=== PATIENT | male | born 1940 | race Caucasian/White ===

== ENCOUNTER 2018-11-06 19:19 | Observation (INO) ==
--- NOTE | 2018-11-06 19:59 | Emergency Department Note ---
Disposition Clinical Impression: Unable to ambulate, Painless hematuria Fall Qualifiers: Encounter type: initial encounter Qualified Code(s): W19.XXXA - Unspecified fal l, initial encounter Nasal fracture Qualifiers: Encounter type: initial encounter Fracture type: open Qualified Code(s): S02.2XXB - Fracture of nasal bones, initial encounter for open fracture Disposition: Admitted As Inpatient Time of Disposition: 00:45 General Adult HPI - General Chief complaint: ED Fall Stated complaint: Fall Time Seen by Provider: 11/06/18 19:39 Source: patient, EMS Mode of arrival: EMS Nursing Notes Reviewed: Yes Vital Signs Reviewed: Yes - History of Present Illness HPI Narrative: Mr. Kennedy is a 77 yo male with PMH of HLD and GERD, presenting emergency department via EMS after a fall at home. He states that his legs "gave out" from under him and this was the cause of the fall. Denies weakness in legs now. EMS report was that he tripped and fell. No one witnessed the fall, but his was near and got to him immediately. Denies other preceding symptoms, no chest pain, palpitations, or light-headedness. He denies LOC, headache, vision changes, neck pain, back pain, numbness, tingling, current weakness, dyspnea, abdominal pain, or loss of bowel/bladder function. He is not on anticoagulation. He reports he only goes to the doctor about once per year and has not had any recent labs done. He has not discussed his legs giving out with any physician. He also reports a few episodes of painless hematuria in the past, and he was a former smoker. Pain Scale: 6 - Related Data Home Medications Medication Instructions Recorded Confirmed Aspirin [Lo-Dose Aspirin EC] 81 mg PO DAILY 11/06/18 11/06/18 Omeprazole [PriLOSEC] 20 mg PO DAILY 11/06/18 11/06/18 Pravastatin Sodium [Pravachol] 40 mg PO HS 11/06/18 11/06/18 Allergies Allergy/AdvReac Type Severity Reaction Status Date / Time No Known Allergies Allergy Verified 11/06/18 19:37 Review of Systems: Admits to fall and transient leg weakness. Denies chest pain, palpitations, light-headedness, LOC, headache, vision changes, neck pain, back pain, numbness, tingling, current weakness, dyspnea, abdominal pain, or loss of bowel/bladder function. Past Medical History - Past Medical History Medical history: Reports: GERD, hyperlipidemia, hypertension, other Psychiatric history: Reports: no psych history - Social History Smoking Status: Never smoker Smokeless Tobacco Status: No Alcohol use: Reports: none Drug use: Reports: none Physical Exam GEN: No acute distress, A&O3 HEAD: normocephalic, facial bones without crepitus or pain, 2cm angulated laceration on bridge of nose EYES: Pupils symmetric, sclera white, conjunctiva pink EARS: EACs clear, normal TMs bilaterally, no hemotympanum HEART: RRR, normal S1 and S2, no murmurs LUNGS: Clear to auscultation bilaterally, no wheezes, rhonchi, or crackles ABD: Soft, nontender, nondistended, bowel sounds present EXT: No edema noted, pulses 2/4 MSK: No cervical, thoracic, or lumbar tenderness NEURO: No focal deficits, cooperative with exam, PERRL, CN 2-12 grossly intact, no facial drooping, strength 5/5 in UE and LE, sensation to light touch intact in all four extremities, finger to nose testing normal - General Limitations: other General appearance: alert Course Vital Signs Temperature 100.2 F H 11/06/18 19:27 Pulse Rate 101 11/06/18 19:27 Respiratory Rate 24 11/06/18 19:27 Blood Pressure 129/80 11/06/18 19:27 O2 Sat by Pulse Oximetry 97 11/06/18 19:27 Temperature 99.7 F H 11/06/18 23:44 Pulse Rate 101 11/07/18 00:15 Respiratory Rate 24 11/07/18 00:15 Blood Pressure 156/85 11/07/18 00:15 O2 Sat by Pulse Oximetry 97 11/07/18 00:15 Oxygen Delivery Oxygen Delivery Room Air Medical Decision Making - [facility] Narrative Medical decision making narrative: 77-year-old male presenting after a fall, there is question if this is mechanical or due to weakness. He does have a laceration over the nose. CT of the head shows no acute intracranial abnormality. Facial CT shows acute comminuted, nondisplaced nasal bone fractures. He does have a low-grade te mperature of 100.2, but without any signs or symptoms of source of infection, and repeat temp is 99.9 F. He has been mildy tachycardic, but regular in rhythm. His labs show glucose 155 and otherwise unremarkable CMP, normal CBC. He was having some hematuria, but UA shows protein, ketones, and small leuk esterase, and negative nitrites. Abd/pelvis CT ordered and will be followed up on as in-patient. He progressed to having difficulty sitting up in bed on his own and complains of intermittent weakness in his legs. - Lab Data Result diagrams: 11/06/18 19:35 11/06/18 19:35 Lab Results 11/06/18 11/06/18 11/06/18 Range/Units 19:35 19:35 22:19 WBC 10.9 (4.3-11.1) K/mcL RBC 5.10 (4.19-5.50) M/mcL Hgb 13.7 (12.9-16.9) g/dL Hct 44.5 (37.5-50.1) % MCV 87.3 (83.0-100.0) fL MCH 26.9 L (28.0-33.3) pg MCHC 30.8 L (31.6-35.5) g/dL RDW 13.8 (11.5-14.5) % Plt Count 235 (140-400) K/mcL MPV 10.0 (9.4-12.4) fL Immature Gran % 0.5 (0-4) % Seg Neutrophils % 79.2 % Lymphocytes % 10.8 % Monocytes % 7.9 % Eosinophils % 1.1 % Basophils % 0.5 % Neutrophils # 8.6 (1.6-8.9) K/mcL Lymphocytes # 1.2 (0.6-4.6) K/mcL Monocytes # 0.9 (0.0-1.3) K/mcL Eosinophils # 0.1 (0.0-0.6) K/mcL Basophils # 0.1 (0.0-0.2) K/mcL Sodium 140 (136-145) mEq/L Potassium 3.6 (3.5-5.1) mEq/L Chloride 102 (98-107) mEq/L Carbon Dioxide 27 (23-29) mEq/L BUN 19 (8-23) mg/dL Creatinine 1.18 (0.70-1.30) mg/dL Est GFR ( Amer) > 60 (> 60) Est GFR (Non-Af Amer) > 60 (> 60) BUN/Creatinine Ratio 16 (6-26) Glucose 155 H (70-105) mg/dL Calculated Osmolality 295 (280-300) Calcium 9.3 (8.6-10.3) mg/dL Total Bilirubin 0.5 (0.3-1.0) mg/dL AST 45 H (13-39) Units/L ALT 40 (7-52) Units/L Alkaline Phosphatase 163 H (34-104) Units/L Serum Total Protein 6.9 (6.4-8.9) g/dL Albumin 4.0 (3.5-5.7) g/dL Globulin 2.9 (2.4-3.5) g/dL Albumin/Globulin Ratio 1.4 (1.1-2.2) Urine Color Yellow (Yellow) Urine Clarity Clear (Clear) Urine pH 6.0 (5.0-8.0) pH Units Ur Specific [place] 1.028 H (1.010-1.025) Urine Protein 30 H (Neg-Trace) mg/dL Urine Glucose (UA) Normal (Normal) mg/dL Urine Ketones Trace H (Negative) mg/dL Urine Blood Negative (Negative) Urine Nitrite Negative (Negative) Urine Bilirubin Negative (Negative) Urine Urobilinogen Normal (Normal) mg/dL Ur Leukocyte Esterase Small H (Negative) Urine Microscopic RBC 0-3 (0-3) per hpf Urine Microscopic WBC 0-3 (0-3) per hpf Calcium Oxalate Crystal Present Urine Bacteria Few (None-Few) per hpf Hyaline Casts Few (None-Few) per lpf Ur Culture Indicated? YES A (NO) - Radiology Data Radiology results reviewed: Yes I reviewed the patient's radiology results.
--- NOTE | 2018-11-06 20:14 | Emergency Department Note ---
Disposition Clinical Impression: Unable to ambulate, Painless hematuria Fall Qualifiers: Encounter type: initial encounter Qualified Code(s): W19.XXXA - Unspecified fal l, initial encounter Nasal fracture Qualifiers: Encounter type: initial encounter Fracture type: open Qualified Code(s): S02.2XXB - Fracture of nasal bones, initial encounter for open fracture Disposition: Admitted As Inpatient Condition: Fair Forms: ED Satisfaction Letter Time of Disposition: 00:31 General Adult HPI - General Chief complaint: ED Fall Stated complaint: Fall Time Seen by Provider: 11/06/18 19:39 Source: patient, EMS Mode of arrival: EMS Limitations: other - History of Present Illness Pain Scale: 6 - Related Data Home Medications Medication Instructions Recorded Confirmed Aspirin [Lo-Dose Aspirin EC] 81 mg PO DAILY 11/06/18 11/06/18 Omeprazole [PriLOSEC] 20 mg PO DAILY 11/06/18 11/06/18 Pravastatin Sodium [Pravachol] 40 mg PO HS 11/06/18 11/06/18 Allergies Allergy/AdvReac Type Severity Reaction Status Date / Time No Known Allergies Allergy Verified 11/06/18 19:37 Past Medical History - Past Medical History Medical history: Reports: GERD, hyperlipidemia, hypertension, other Psychiatric history: Reports: no psych history - Social History Smoking Status: Never smoker Smokeless Tobacco Status: No Alcohol use: Reports: none Drug use: Reports: none Physical Exam - General Limitations: other General appearance: alert Course Vital Signs Temperature 100.2 F H 11/06/18 19:27 Pulse Rate 101 11/06/18 19:27 Respiratory Rate 24 11/06/18 19:27 Blood Pressure 129/80 11/06/18 19:27 O2 Sat by Pulse Oximetry 97 11/06/18 19:27 Temperature 99.7 F H 11/06/18 23:44 Pulse Rate 101 11/07/18 00:15 Respiratory Rate 24 11/07/18 00:15 Blood Pressure 156/85 11/07/18 00:15 O2 Sat by Pulse Oximetry 97 11/07/18 00:15 Oxygen Delivery Oxygen Delivery Room Air Medical Decision Making - Lab Data Result diagrams: 11/06/18 19:35 11/06/18 19:35 Lab Results 11/06/18 11/06/18 11/06/18 Range/Units 19:35 19:35 22:19 WBC 10.9 (4.3-11.1) K/mcL RBC 5.10 (4.19-5.50) M/mcL Hgb 13.7 (12.9-16.9) g/dL Hct 44.5 (37.5-50.1) % MCV 87.3 (83.0-100.0) fL MCH 26.9 L (28.0-33.3) pg MCHC 30.8 L (31.6-35.5) g/dL RDW 13.8 (11.5-14.5) % Plt Count 235 (140-400) K/mcL MPV 10.0 (9.4-12.4) fL Immature Gran % 0.5 (0-4) % Seg Neutrophils % 79.2 % Lymphocytes % 10.8 % Monocytes % 7.9 % Eosinophils % 1.1 % Basophils % 0.5 % Neutrophils # 8.6 (1.6-8.9) K/mcL Lymphocytes # 1.2 (0.6-4.6) K/mcL Monocytes # 0.9 (0.0-1.3) K/mcL Eosinophils # 0.1 (0.0-0.6) K/mcL Basophils # 0.1 (0.0-0.2) K/mcL Sodium 140 (136-145) mEq/L Potassium 3.6 (3.5-5.1) mEq/L Chloride 102 (98-107) mEq/L Carbon Dioxide 27 (23-29) mEq/L BUN 19 (8-23) mg/dL Creatinine 1.18 (0.70-1.30) mg/dL Est GFR ( Amer) > 60 (> 60) Est GFR (Non-Af Amer) > 60 (> 60) BUN/Creatinine Ratio 16 (6-26) Glucose 155 H (70-105) mg/dL Calculated Osmolality 295 (280-300) Calcium 9.3 (8.6-10.3) mg/dL Total Bilirubin 0.5 (0.3-1.0) mg/dL AST 45 H (13-39) Units/L ALT 40 (7-52) Units/L Alkaline Phosphatase 163 H (34-104) Units/L Serum Total Protein 6.9 (6.4-8.9) g/dL Albumin 4.0 (3.5-5.7) g/dL Globulin 2.9 (2.4-3.5) g/dL Albumin/Globulin Ratio 1.4 (1.1-2.2) Urine Color Yellow (Yellow) Urine Clarity Clear (Clear) Urine pH 6.0 (5.0-8.0) pH Units Ur Specific [place] 1.028 H (1.010-1.025) Urine Protein 30 H (Neg-Trace) mg/dL Urine Glucose (UA) Normal (Normal) mg/dL Urine Ketones Trace H (Negative) mg/dL Urine Blood Negative (Negative) Urine Nitrite Negative (Negative) Urine Bilirubin Negative (Negative) Urine Urobilinogen Normal (Normal) mg/dL Ur Leukocyte Esterase Small H (Negative) Urine Microscopic RBC 0-3 (0-3) per hpf Urine Microscopic WBC 0-3 (0-3) per hpf Calcium Oxalate Crystal Present Urine Bacteria Few (None-Few) per hpf Hyaline Casts Few (None-Few) per lpf Ur Culture Indicated? YES A (NO) Attestation Statement - Attestation Attestation: I saw and evaluated the patient and and reviewed the resident's note/PA note/MOTION PICTURE DIRECTOR note, and I agree with the findings and plan. I personally supervised and was present for the sibley/critical portions of any procedures. The medical decision- making was reviewed with the NUCLEAR CONTROL ROOM OPERATOR/PA/Advanced Practice Nurse/Resident Physician. I agree with the documented findings, disposition and treatment plan as described except to the extent set forth below. I did see the patient immediately upon arrival and also spoke with the paramedics the patient states that his legs gave out and he fell onto his face. No loss of consciousness. He is not anticoagulated. He does use aspirin. He denies any numbness or weakness of extremities, slurred speech, facial droop, confusion. No neck pain. There is some facial pain. CT scan of the face and head will be done. No neck pain so neck CT will not be done. Results pending. Patient's legs giving out and leg weakness is not a new finding and this can be further evaluated as an outpatient. 2013
[2018-11-06] MEDS ORDERED: Td (TENIVAC) Vaccine 0.5 ML VIAL IM ONE (20:31)
[2018-11-06] MEDS ORDERED: Tdap (Boostrix) Vaccine 0.5 ML SYRINGE IM ONE (20:45)
[2018-11-06] MEDS ORDERED: Isovue-370 500 ML BOTTLE IVP ONE (21:35)
[2018-11-06 21:52] LABS: Basophils # 0.1 K/mcL (0.0-0.2); Basophils % 0.5 %; Eosinophils # 0.1 K/mcL (0.0-0.6); Eosinophils % 1.1 %; Hematocrit 44.5 % (37.5-50.1); Hemoglobin 13.7 g/dL (12.9-16.9); Immature Granulocytes % 0.5 % (0-4); Lymphocytes # 1.2 K/mcL (0.6-4.6); Lymphocytes % 10.8 %; Mean Corpuscular HGB Conc 30.8 g/dL (31.6-35.5); Mean Corpuscular Hemoglobin 26.9 pg (28.0-33.3); Mean Corpuscular Volume 87.3 fL (83.0-100.0); Monocytes # 0.9 K/mcL (0.0-1.3); Monocytes % 7.9 %; Neutrophils # 8.6 K/mcL (1.6-8.9); Platelet Count 235 K/mcL (140-400); Red Cell Distribution Width 13.8 % (11.5-14.5); Segmented Neutrophils % 79.2 %; White Blood Count 10.9 K/mcL (4.3-11.1)
[2018-11-06 22:11] LABS: Alanine Aminotransferase 40 Units/L (7-52); Albumin/Globulin Ratio 1.4 (1.1-2.2); Alkaline Phosphatase 163 Units/L (34-104); Aspartate Amino Transferase 45 Units/L (13-39); BUN/Creatinine Ratio 16 (6-26); Bilirubin,Total 0.5 mg/dL (0.3-1.0); Blood Urea Nitrogen 19 mg/dL (8-23); Calcium 9.3 mg/dL (8.6-10.3); Carbon Dioxide 27 mEq/L (23-29); Chloride 102 mEq/L (98-107); Globulin 2.9 g/dL (2.4-3.5); Glucose 155 mg/dL (70-105); Osmolality,Calculated 295 (280-300); Potassium 3.6 mEq/L (3.5-5.1); Sodium 140 mEq/L (136-145); Total Protein 6.9 g/dL (6.4-8.9); eGFR For African Americans > 60 (> 60); eGFR For Non-African Americans > 60 (> 60)
[2018-11-06 22:24] LABS: Bilirubin,Urine Negative (Negative); Blood,Urine Negative (Negative); Clarity,Urine Clear (Clear); Color,Urine Yellow (Yellow); Glucose,Urine (UA) Normal (Normal); Ketones,Urine Trace mg/dL (Negative); Leukocyte Esterase,Urine Small (Negative); Nitrite,Urine Negative (Negative); Protein,Urine 30 mg/dL (Neg-Trace); Specific Gravity,Urine 1.028 (1.010-1.025); Urobilinogen,Urine Normal (Normal)
[2018-11-06 22:35] LABS: Hyaline Casts,Urine Few per lpf (None-Few)
[2018-11-06 22:36] LABS: Bacteria,Urine Few per hpf (None-Few); Calcium Oxalate Crystals,Urine Present; RBC,Urine 0-3 per hpf (0-3); WBC,Urine 0-3 per hpf (0-3)
[2018-11-07] MEDS ORDERED: Gadolinium Contrast Agent (WT Based) IV PRN (02:17)
[2018-11-07] MEDS ORDERED: traMADol 50 MG TABLET PO PRN (02:21)
[2018-11-07] MEDS ORDERED: Acetaminophen 325 MG TABLET PO PRN (02:21)
[2018-11-07] MEDS ORDERED: Naloxone 0.4 MG/ML INJ IVP PRN (02:21)
[2018-11-07] MEDS ORDERED: Ondansetron 4 MG/2 ML VIAL IVP PRN (02:21)
--- NOTE | 2018-11-07 02:49 | Internal Med History&Physical ---
Date of Encounter: 11/07/18 Time of Encounter: 01:30 Internal Medicine - H&P: HPI Chief complaint: Fall Admitted From: Emergency Dept Plans for Post Hospital Care: Home History of present illness: Mr. Kennedy is a 77 year old male w/PMH of HLD and GERD presents from the ED w/CC of a fall yesterday which resulted in a comminuted mildly impacted and angulated nasal bone fracture with overlying soft tissue swelling and soft tissue gas. Patient states that he was carrying papers from his car when his legs went out from underneath him, causing him to fall on his face. Patient denies hx of falls. Patient denies LOC. States he is supposed to use a walker but does not. Fall was unwitnessed. Patient is not on anticoagulation. Patient reports episodes of hematuria but current U/A is negative for blood. Patient states that he is a former smoker who smoked 1 PPD up until 5 years ago. Patient denies recent illness, fever, chils, nausea, vomiting, CP, SOB, headache, changes in vision, unusual bleeding, abdominal pain, diarrhea, constipation, numbness, tingling, dizziness, lightheadedness, pre-syncope, or syncope. Past Med Surg Social Fam HX - Past Medical History Source: patient, old records reviewed Medical history: GERD, hyperlipidemia, other Additional medical history: CITIZEN [place] Psychiatric history: no psych history - Social History Smoking Status: Former smoker Packs per day: 1 PPD Smokeless Tobacco Status: No Alcohol use: none Drug use: none Current living situation: Home, With Family Activity Level: Uses cane/walker Recent Out of Country Travel Within the Last 8 Weeks: No Exposure or Possible Exposure to Illness During Travel: No - Family History Father Race: Family Member Ethnicity: Non- Living Status: Age at : 56 Cause of : Unknown Mother Race: Family Member Ethnicity: Non- Living Status: Age at : 73 Cause of : Cancer (Type unknown) Hx Family Cancer: Yes Brother Race: Family Member Ethnicity: Non- Living Status: Age at : 73 Cause of : Seizure Hx Family Neurologic Disorders: Yes (Hx of epilepsy) Sister Race: Family Member Ethnicity: Non- Living Status: Age at : 70 Cause of : Cancer (Type unknown) Hx Family Cancer: Yes Internal Medicine - H&P: Meds Aspirin [Lo-Dose Aspirin EC] 81 mg PO DAILY 11/06/18 [History] Omeprazole [PriLOSEC] 20 mg PO DAILY 11/06/18 [History] Pravastatin Sodium [Pravachol] 40 mg PO HS 11/06/18 [History] Allergy/AdvReac Type Severity Reaction Status Date / Time No Known Allergies Allergy Verified 11/06/18 19:37 All Systems PM: A 10-system review of systems was performed and is negative for pertinent findings except as documented above in the HPI. - Constitutional Constitutional: as per HPI, falls, no chills, no fever(s), no night sweats - EENT Eyes: no change in vision, no discharge, no pain, no photophobia Ears: no ear discharge, no ear pain, no tinnitus Nose, mouth and throat: no dysphagia, no nasal discharge, no neck pain, no sore throat - Breasts Breasts: as per HPI - Cardiovascular Cardiovascular ROS IM: no chest pain, no diaphoresis, no dyspnea, no lightheadedness, no palpitations, no syncope - Respiratory Respiratory: no cough, no dyspnea, no wheezing, no excessive phlegm production - Gastrointestinal Gastrointestinal: as per HPI, heartburn, no abdominal pain, no diarrhea, no hematemesis, no hematochezia, no melena, no nausea, no vomiting - Genitourinary Genitourinary ROS male: as per HPI - Musculoskeletal Musculoskeletal ROS IM: no numbness, no tingling - Integumentary Integumentary IM: no rash, no unusual bruising - Neurological Neurological ROS: as per HPI, no confusion, no convulsions, no focal weakness, no numbness, no tingling, no tremor(s) - Psychiatric Psychiatric: as per HPI - Endocrine Endocrine IM: as per HPI - Hematologic/Lymphatic Hematologic/Lymphatic: no easy bruising - Allergic/Immunologic Allergic/Immunologic: as per HPI - Constitutional Vitals: Temp Pulse Resp BP Pulse Ox 99.1 F 100 14 141/83 97 11/07/18 02:03 11/07/18 02:03 11/07/18 02:03 11/07/18 02:03 11/07/18 02:03 General appearance: Present: cooperative, A&O X 3, pleasant, answers questions appropriately Exam: Patient examined at bedside. Patient was resting in bed. Nurse was applying wet washcloth to patient's nose d/t dried blood. Patient denied any pain or other symptoms/complaints on exam. VS: 99.7F temp, HR 101, RR 24, BP 163/85, SpO2 97% on RA. - Head Head exam: Present: normocephalic Additional comments: Patient has laceration to bridge of nose sustained in fall. Minor lacerations on face. - Eye Eye exam: Present: PERRL, conjuntiva pink, sclera anicteric Pupils: Present: PERRL - ENT ENT exam: Present: normal exam - Neck Neck exam general surgery: Present: supple, trachea midline. Absent: lymphadenopathy - Respiratory Respiratory exam: Present: CTAB. Absent: accessory muscle use, rales, rhonchi, wheezes - Cardiovascular Cardiovascular exam: Present: RRR, +S1, +S2. Absent: diastolic murmur, gallop, rubs, systolic murmur - GI/Abdominal GI/Abdominal exam: Present: normal bowel sounds, soft, no peritoneal signs. Absent: distended, tenderness - Rectal Rectal exam: Present: deferred - Additional comments: exam deferred. - Extremities Exam Extremities exam: Present: warm, radial pulses palpable and symmetrical. Absent: calf tenderness, cyanotic, pedal edema - Back Exam Back exam: Present: normal inspection - Neurological Exam Neurological exam: Present: alert, CN II-XII intact, oriented X3, no focal deficits. Absent: pronater drift, facial droop, speech deficit - Psychiatric Psychiatric exam: Present: normal affect, normal mood - Skin Skin exam: Present: dry, intact Internal Med - H&P Results - Labs CBC & Chem 7: 11/06/18 19:35 11/06/18 19:35 Labs: Short CBC 11/06/18 Range/Units 19:35 WBC 10.9 (4.3-11.1) K/mcL Hgb 13.7 (12.9-16.9) g/dL Hct 44.5 (37.5-50.1) % Plt Count 235 (140-400) K/mcL Neutrophils # 8.6 (1.6-8.9) K/mcL BMP 11/06/18 19:35 Sodium 140 Potassium 3.6 Chloride 102 Carbon Dioxide 27 BUN 19 Creatinine 1.18 Glucose 155 H Calcium 9.3 Liver Function 11/06/18 Range/Units 19:35 Total Bilirubin 0.5 (0.3-1.0) mg/dL AST 45 H (13-39) Units/L ALT 40 (7-52) Units/L Alkaline Phosphatase 163 H (34-104) Units/L Albumin 4.0 (3.5-5.7) g/dL Urine 11/06/18 Range/Units 22:19 Urine Color Yellow (Yellow) Urine Clarity Clear (Clear) Urine pH 6.0 (5.0-8.0) pH Units Ur Specific [place] 1.028 H (1.010-1.025) Urine Protein 30 H (Neg-Trace) mg/dL Urine Glucose (UA) Normal (Normal) mg/dL - EKG Data EKG shows normal: sinus rhythm Rate: tachycardia - EKG Data Prior EKG available for review: no EKG comments: 11/07/18 03:06 EKG dated 11/06/18 shows sinus tachycardia with rate greater than 99 BPM. - Impressions ITS Impressions Face CT 11/06/18 19:52 IMPRESSION: Comminuted, mildly impacted and angulated nasal bone fractures with overlying soft tissue swelling and soft tissue gas. D/ / Elmer Contreras MD / Elmer Contreras MD Interpreting Provider: Elmer Contreras MD Head CT 11/06/18 19:52 IMPRESSION: No acute intracranial abnormality. Acute nondisplaced nasal bone fractures. Please refer to maxillofacial CT for further comment. D/ / 11/06/2018 20:54:35 Lauri Aguilar MD / [email or web address] Interpreting Provider: Lauri Aguilar MD Abdomen/Pelvis CT 11/06/18 21:35 IMPRESSION: No definite acute abnormality identified. There is an indeterminate low-density lesion extending from the inferior aspect of the left kidney. Nonemergent follow-up renal MRI or CT is recommended to fully characterize that. Moderate diverticulosis of the large bowel, mainly in the region of the sigmoid colon, but without CT evidence of diverticulitis. Cholelithiasis, but without other CT evidence of cholecystitis. Small to moderate-sized hiatal hernia. D/ / Elmer Contreras MD / Elmer Contreras MD Interpreting Provider: Elmer Contreras MD - Diagnostic Studies CT scan - abdomen Additional comments: Impressions Abdomen/Pelvis CT 11/06/18 21:35 IMPRESSION: No definite acute abnormality identified. There is an indeterminate low-density lesion extending from the inferior aspect of the left kidney. Nonemergent follow-up renal MRI or CT is recommended to fully characterize that. Moderate diverticulosis of the large bowel, mainly in the region of the sigmoid colon, but without CT evidence of diverticulitis. Cholelithiasis, but without other CT evidence of cholecystitis. Small to moderate-sized hiatal hernia. D/ / Elmer Contreras MD / Elmer Contreras MD Interpreting Provider: Elmer Contreras MD CT scan - head Additional comments: Impressions Head CT 11/06/18 19:52 IMPRESSION: No acute intracranial abnormality. Acute nondisplaced nasal bone fractures. Please refer to maxillofacial CT for further comment. D/ / 11/06/2018 20:54:35 Lauri Aguilar MD / fide Interpreting Provider: Lauri Aguilar MD Other Images Additional comments: Impressions Face CT 11/06/18 19:52 IMPRESSION: Comminuted, mildly impacted and angulated nasal bone fractures with overlying soft tissue swelling and soft tissue gas. D/ / Elmer Contreras MD / Elmer Contreras MD Interpreting Provider: Elmer Contreras MD - Assessment and Plan (1) Fall Current Visit: Yes Status: Acute Assessment and plan: Acute fall yesterday w/facial fracture. CT of the face shows a comminuted mildly impacted and angulated nasal bone fracture with overlying soft tissue swelling and soft tissue gas. Patient denies hx. of falls. Patient states that he was carrying papers from his car when his legs went out from underneath him, causing him to fall on his face. Patient denies LOC. States he is supposed to use a walker but does not. Fall was unwitnessed. Patient is not on anticoagulation. Orthostatic BPs and VS ordered. PT/OT consults to assess pts. ambulation and make recommendations for possible home assistive or rehabilitation needs for post-discharge planning. Falls/safety precautions. Up with assist only. Patient educated to not get out of bed w/o assistance. Expressed understanding and agreement to plan. Blood alcohol ordered. Patient is high risk for further morbidity and complications d/t current nasal bone fracture, fall of unknown etiology, unexplained sudden weakness of bilateral legs requiring further spinal MRIs, close monitoring for mentation changes d/t head injury, and advanced age. Observation. Qualifiers: Encounter type: initial encounter Qualified Code(s): W19.XXXA - Unspecified fall, initial encounter (2) Nasal fracture Current Visit: Yes Status: Acute Assessment and plan: Acute nasal fracture sustained from fall yesterday. CT of the face shows comminuted, mildly impacted and angulated nasal bone fractures with overlying soft tissue swelling and soft tissue gas. CT of the head shows no acute intracranial abnormality. Stair-step pain medications for pain mgmt. Monitor pt. closely for signs of epistaxis, worsening edema, difficulty breathing or swallowing, or other signs of distress. Qualifiers: Encounter type: initial encounter Fracture type: open Qualified Code(s): S02.2XXB - Fracture of nasal bones, initial encounter for open fracture (3) Hyperglycemia Current Visit: Yes Status: Acute Assessment and plan: Acute hyperglycemia w/BG of 155 on admission. Patient denies DM hx. A1c in a.m. labs. (4) Liver enzyme elevation Current Visit: Yes Status: Acute Assessment and plan: Acutely elevated AST of 45 on admission. Pt. denies alcohol use. Blood alcohol ordered. Monitor pt. and f/u labs. (5) GERD (gastroesophageal reflux disease) Current Visit: Yes Status: Chronic Assessment and plan: Hx of chronic GERD. Continue pts. PO Prilosec. Zofran 4 mg IVP every 8 hours when necessary for nausea and vomiting. Qualifiers: Esophagitis presence: esophagitis presence not specified Qualified Code(s): K21.9 - Gastro-esophageal reflux disease without esophagitis (6) HLD (hyperlipidemia) Current Visit: Yes Status: Chronic Assessment and plan: Hx of chronic HLD. Lipid panel in a.m. labs. Continue pts. Lipitor. Qualifiers: Hyperlipidemia type: pure hypercholesterolemia Qualified Code(s): E78.00 - Pure hypercholesterolemia, unspecified; E78.0 - Pure hypercholesterolemia (7) DVT prophylaxis Current Visit: Yes Status: Acute Assessment and plan: Bilateral SCDs on LEs for DVT prophylaxis. - Time Spent With Patient Total time spent is greater than 50% in coordination of care (as documented) at patient's floor/unit and/or counseling patient: Greater than 35 minutes
[2018-11-07 03:56] LABS: Hematocrit 40.9 % (37.5-50.1); Hemoglobin 12.8 g/dL (12.9-16.9); Mean Corpuscular HGB Conc 31.3 g/dL (31.6-35.5); Mean Corpuscular Hemoglobin 26.8 pg (28.0-33.3); Mean Corpuscular Volume 85.6 fL (83.0-100.0); Mean Platelet Volume 9.4 fL (9.4-12.4); Platelet Count 214 K/mcL (140-400); Red Blood Count 4.78 M/mcL (4.19-5.50); Red Cell Distribution Width 13.8 % (11.5-14.5); White Blood Count 11.2 K/mcL (4.3-11.1)
[2018-11-07 04:12] LABS: BUN/Creatinine Ratio 17 (6-26); Blood Urea Nitrogen 18 mg/dL (8-23); Calcium 8.9 mg/dL (8.6-10.3); Carbon Dioxide 24 mEq/L (23-29); Chloride 103 mEq/L (98-107); Chol/HDL Ratio 4.7 (0-4.9); Cholesterol 137 mg/dL (< 200); Estimated Average Glucose 134 mg/dl; Ethanol < 10 mg/dL (Less than 10); Glucose 134 mg/dL (70-105); HDL Cholesterol 29 mg/dL (40-59); LDL Cholesterol,Calculated 86 mg/dL (0-99); Magnesium 2.1 mg/dL (1.6-2.6); Osmolality,Calculated 292 (280-300); Potassium 3.9 mEq/L (3.5-5.1); Sodium 139 mEq/L (136-145); Triglycerides 112 mg/dL (< 150); eGFR For African Americans > 60 (> 60); eGFR For Non-African Americans > 60 (> 60)
[2018-11-07] MEDS ORDERED: Aspirin Enteric Coated 81 MG Tablet PO SCH (09:00)
[2018-11-07 15:08] VITALS: BP 160/89
--- NOTE | 2018-11-07 17:39 | Event Note ---
Date of Encounter: 11/07/18 Time of Encounter: 17:37 77 year old male presents for history of fall resulting in midly impacted angulated nasal bone fracture. He did not pass out during this time, it was due to weakness of lower extremities. VS are stable, physical exam shows lower extremity weakness. Labs reviewed. Will have PT/OT see patient and follow-up MRI findings of severe spinal stenosis with Ortho to see if any inpatient intervention needed. See H&P done today.
--- NOTE | 2018-11-07 18:13 | Discharge Summary ---
Orders not resulted at time of discharge: Pending orders 11/06/18 22:19 Culture,Urine [RM] Stat 11/07/18 16:42 Vitamin B1 (Thiamine) Whole Bl Routine Date of Encounter: 11/07/18 Time of Encounter: 11:00 - Discharge Diagnosis (1) Fall Priority: Primary Status: Acute Assessment and Plan: Patient had a nonmechanical fall after his legs gave out on him Likely secondary to motor weakness possibly due to spinal canal stenosis Patient suffered a fractured nose CT showed concerns for cervical spine central canal stenosis Spinal surgery on board Recommended follow-up outpatient in one week at the spine center Qualifiers: Encounter type: initial encounter Qualified Code(s): W19.XXXA - Unspecified fall, initial encounter (2) Nasal fracture Priority: Primary Status: Acute Assessment and Plan: Secondary to nonmechanical fall Comminuted mildly impacted nasal bone fracture bilaterally with mild angulation of the left with overlying soft tissue swelling and soft tissue gas is noted on CT of the face Follow with orthopedic surgery Qualifiers: Encounter type: initial encounter Fracture type: open Qualified Code(s): S02.2XXB - Fracture of nasal bones, initial encounter for open fracture Hospital course: Mr. Kennedy is a 77 year old male presented to the ED following nonmechanical fall when his legs gave out from under him any of his face on his driveway. CT of the face showed comminuted, mildly impacted nasal bone fractures bilaterally with mild angulation to the left overlying soft tissue swelling and soft tissue gas is noted. 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 Spinal surgery was consulted in this matter and stated they would like him to follow up in approximately one week as an outpatient at the spine center. Patient's vitals and labs were grossly normal. Patient has done well and has been monitored for any cognitive difficulties. Patient would like to be discharged home at this time. Patient to follow with PCP for his fatigue. Patient to follow with the spine center in approximately one week for mechanical falls and CT findings. Discharge discussed with: patient - Time Spent with Patient Total time spent providing and/or coordinating discharge services: - Discharge Medications Prescriptions: Continued Pravastatin Sodium [Pravachol] 80 mg PO HS Aspirin [Lo-Dose Aspirin EC] 81 mg PO DAILY Multivits,Ca,Min/Iron/FA/Lycop [Centrum Men's Tablet] 1 tab PO DAILY Omeprazole [PriLOSEC] 40 mg PO DAILY Sildenafil Citrate [Revatio] 20 mg PO DAILY PRN PRN Reason: Erectile Dysfunction Home Medications: Aspirin [Lo-Dose Aspirin EC] 81 mg PO DAILY 11/06/18 [History] Pravastatin Sodium [Pravachol] 80 mg PO HS 11/06/18 [History] Multivits,Ca,Min/Iron/FA/Lycop [Centrum Men's Tablet] 1 tab PO DAILY 11/07/18 [History] Omeprazole [PriLOSEC] 40 mg PO DAILY 11/07/18 [History] Sildenafil Citrate [Revatio] 20 mg PO DAILY PRN 11/07/18 [History] Allergies/Adverse Reactions: Allergy/AdvReac Type Severity Reaction Status Date / Time No Known Allergies Allergy Verified 11/07/18 14:53 Date of admission: 11/07/18 00:31 Primary care physician: Tony Castano MD Consults: 11/07/18 02:22 Consult to Pretzel Twisting Machine Operator [CONS] Routine Reason for SW Consult: Please assess patient for possible home needs for post-discharge planning. 11/07/18 02:23 Consult to Occupational Therapy [CONS] Routine Comment: Evaluate, develop and implement POC Reason for Consult: Patient had fall yesterday where he states "his legs just gave out from underneath him". Denies hx of falls. Fall resulted in facial fx. Please assess patient for ambulation strength, safety, stability, and possible home assistive/rehabilitation needs for post-discharge planning. Does patient have active BEDREST order?: No Is patient medically & hemodynamically stable?: Yes Patient assessed for mobility or mobilized this visit?: No 11/07/18 02:26 Consult to Physical Therapy [CONS] Routine Comment: Evaluate, develop and implement POC Reason for Consult: Patient had fall yesterday where he states "his legs just gave out from underneath him". Denies hx of falls. Fall resulted in facial fx. Please assess patient for ambulation strength, safety, stability, and possible home assistive/rehabilitation needs for post-discharge planning. Does patient have active BEDREST order?: No Is patient medically & hemodynamically stable?: Yes Patient assessed for mobility or mobilized this visit?: No Discharging clinician: Kevin Rheem Ghanem Anticipated date of discharge: 11/07/18 - Constitutional Vitals: Temp Pulse Resp BP Pulse Ox 98.0 F 79 16 160/89 94 11/07/18 15:07 11/07/18 15:07 11/07/18 15:07 11/07/18 15:07 11/07/18 15:07 General appearance: Present: cooperative, A&O X 3, pleasant, answers questions appropriately Exam: General: AAO 3, no acute distress, answers questions appropriately Head: normocephalic, bruising as well as some shallow contusions noted along the bridge of the nose Eyes: FELICIA, no icterus Cardio: RRR, no murmurs, rubs, or gallops Respiratory: CTAB, no wheezing, rhonchi, rales Abd: normal bowel sounds, no guarding or rigidity Extremities: no pedal edema, pulses equal bilaterally, warm Skin: warm, dry, intact - Patient Status Disposition: Home, Self-Care Condition: Good Functional capacity at discharge: independent ambulation Overall status at discharge: patient is progressing back to baseline - Discharge Instructions Follow Up With: Tony Castano MD [Primary Care Provider] - - Diet and Activity Activity: resume usual activities as tolerated Diet: advance to your usual diet
--- NOTE | 2018-11-09 22:30 | Electrocardiograph Report ---
[place] [address] Test Date: 2018-11-07 Pat Name: Christine Kennedy Department: 113 Room: 3B Gender: M Hearing Health Technician: [facility] : 1940 Requested By: Can Mcdaniel Order Number: [id number] [place] MD: Gavino Goldstein Measurements Intervals [place] Rate: 91 P: 38 [place]: 157 QRS: 14 QRSD: 87 T: 29 QT: 338 QTc: 387 Interpretive Statements SINUS RHYTHM Electronically Signed On 11-09-2018 22:28:27 EDT by Gavino Goldstein
--- NOTE | 2018-11-11 10:47 | Electrocardiograph Report ---
[address] [address] Test Date: 2018-11-06 Pat Name: hCristine Kennedy Department: EXAM18 Room: 3B11 Gender: Driller Portable: : 1940 Requested By: Xu Kulkarni Order Number: [id number] Reading MD: Wesley Ralph Measurements Intervals [place] Rate: 113 P: 66 [place]: 153 QRS: 43 QRSD: 84 T: 52 QT: 314 QTc: 431 Interpretive Statements Sinus tachycardia Electronically Signed On 11-11-2018 10:45:15 EDT by Wesley Ralph
== END 2018-11-07 18:59 | disposition home or self-care (01) ==
LOC: 3BNU 19:19 → EMEROOARM 19:19 → SUATTDRO 11-07 00:31 → 3BNU 11-07 01:39
PROVIDERS: ADMIT Internal Medicine; ATTEND Student in an Organized Health Care Education/Training Program